=== PATIENT | male | born 1930 | race Caucasian/White ===

== ENCOUNTER 2017-03-12 17:24 | Emergency (ER) | payer MEDICARE ==
[2009-08-12 01:26] VITALS: BP 127/62
[~2017-03-12] VITALS: Ht 172.7 cm; Wt 72.7 kg
[~2017-03-12 17:24] MED LIST: ACIDOPHILUS PO; AMBIEN 5MG TABLE5 MG PO; ASPIR-LOW81 MG PO; ASPIRIN 81M81 MG/TA2 PO; ASPIRIN E.C. 8181 MG PO; B COMPLEX1 TA2 PO; BILBERRY PO; CALCIUM 500500 M2 PO; CALCIUM CARBONATE PO; CALCIUM500 MG PO; COREG 3.123.125 MG/T; COREG 3.123.125 MG/T PO; COREG 6.256.25 MG/TA PO; CORICIDIN; CORICIDIN COUGH1 TAB; FLOMAX 0.40.4 MG/CAP PO; HCTZ; HCTZ12.5TAB PO; LIPITOR 40MG TA40 MG PO; LISINOPRIL; LOPRESSOR 225 MG/TAB PO; MELATONIN3 M1 PO; MILK THISTLE PO; PLAVIX 75MG TAB75 MG PO; PRILOSEC10 MG PO; PRINIVIL40 MG PO; VITAMIN D32000 IU PO; ZANTAC 150MG T150 MG PO; ZOCOR; ZOCOR 40MG40 MG PO
[2017-03-12 17:31] VITALS: TEMP 97.7
[2017-03-12] MEDS ORDERED: ASPIRIN 32325 MG/TAB PO (17:38)
[2017-03-12 17:50] LABS: BASO # 0.1 (0.0-0.2); BASO % 0.4 % (0.0-2.0); EOS # 0.5 (0.0-0.7); EOS % 4.7 % (0-4.0); GRAN # 5.2 (1.4-6.5); GRAN % 44.9 % (42.2-75.2); HEMATOCRIT 47.4 % (42.0-52.0); HEMOGLOBIN 15.6 g/dl (13.5-18.0); LYMPH # 4.7 (1.2-3.4); LYMPH % 40.6 % (20.0-51.0); MEAN CELL VOLUME 90 fl (80.0-100.0); MEAN CORPUSCULAR HEMOGLOBIN 30 pg (27.0-31.0); MEAN CORPUSCULAR HGB CONC 33 g/dl (33.0-37.0); MEAN PLATELET VOLUME 12.2 fl (7.4-10.4); MONO # 1.1 (0.1-0.6); MONO % 9.1 % (1.7-9.3); PLATELET COUNT 185 K/mm3 (130-400); RED BLOOD COUNT 5.26 M/mm3 (4.20-5.60); REDCELL DISTRIBUTION WIDTH-CV 14.9 % (11.5-14.5); WHITE BLOOD COUNT 11.6 K/mm3 (4.8-10.8)
[2017-03-12 18:05] LABS: ALBUMIN 4.3 gm/dL (3.5-5.0); BILIRUBIN,TOTAL 0.8 mg/dL (0.0-1.0); C-REACTIVE PROTEIN 0.6 mg/dL (0.0-0.9); CALCIUM 9.2 mg/dL (8.4-10.2); CREATININE, serum 1.16 mg/dL (0.66-1.25); INR 1.1 (0.8-3.0); POTASSIUM 4.1 mmol/L (3.4-5.0); PROTHROMBIN TIME 12.3 SECONDS (9.7-12.8); TOTAL PROTEIN 7.6 gm/dL (6.4-8.2)
[2017-03-12 18:23] LABS: TROPONIN-I 0.055 ng/mL (0.000-0.034)
[2017-03-12] MEDS ORDERED: FLOMAX 0.40.4 MG/CAP PO (19:16)
[2017-03-12] MEDS ORDERED: MAGNESIUM250 M1 PO (19:20)
[2017-03-12] MEDS ORDERED: LOTENSIN 1010 MG/TAB PO (19:20)
[2017-03-12] MEDS ORDERED: TURMERIC500 MG PO ×2 (19:21→19:22)
[2017-03-12] MEDS ORDERED: GLUCOSAMINE & C1 CA1 PO (19:23)
[2017-03-12 21:13] VITALS: BP 145/88; PULSE 88
== END 2017-03-12 21:13 | disposition short-term general hospital (02) ==
LOC: COL.ER 17:24
PROVIDERS: Family Medicine
DX: I21.4 Non-ST elevation (NSTEMI) myocardial infarction (principal); I25.10 Atherosclerotic heart disease of native coronary artery without angina pectoris; K21.9 Gastro-esophageal reflux disease without esophagitis; I10 Essential (primary) hypertension; E11.9 Type 2 diabetes mellitus without complications; Z87.891 Personal history of nicotine dependence; Z79.82 Long term (current) use of aspirin; Y93.01 Activity, walking, marching and hiking; Y92.59 Other trade areas as the place of occurrence of the external cause
CPT/HCPCS: J7030

== ENCOUNTER → 2017-06-24 | Outpatient (CLI) | payer MEDICARE, BC ==
[~2017-06-24] MED LIST changes: +ASPIRIN 32325 MG/TAB PO; +GLUCOSAMINE & C1 CA1 PO; +LOTENSIN 1010 MG/TAB PO; +MAGNESIUM250 M1 PO; +TURMERIC500 MG PO
== END ==
LOC: SUN.DIA 08-05 18:07
DX: E11.9 Type 2 diabetes mellitus without complications (principal); E78.5 Hyperlipidemia, unspecified; I10 Essential (primary) hypertension; Z68.24 Body mass index [BMI] 24.0-24.9, adult; Z71.3 Dietary counseling and surveillance; Z87.891 Personal history of nicotine dependence
CPT/HCPCS: G0108

== ENCOUNTER 2017-10-23 12:00 | Inpatient (IN) | payer MEDICARE ==
[~2017-10-23] VITALS: Ht 172.7 cm; Wt 75.5 kg
[2017-10-23] MEDS ORDERED: FLOMAX 0.40.4 MG/CAP PO (12:21)
[2017-10-23] MEDS ORDERED: LIPITOR 40MG TA40 MG PO (12:21)
[2017-10-23] MEDS ORDERED: COREG 6.256.25 MG/TA PO (12:22)
[2017-10-23] MEDS ORDERED: ZANTAC 150MG T150 MG PO (12:22)
[2017-10-23] MEDS ORDERED: ASPIRIN E.C. 8181 MG PO (12:22)
[2017-10-23] MEDS ORDERED: LOTENSIN 1010 MG/TAB PO (12:22)
[2017-10-23] MEDS ORDERED: HCTZ12.5TAB PO (12:23)
[2017-10-23] MEDS ORDERED: COUMADIN 22.5 MG/TAB PO (12:24)
[2017-10-23] MEDS ORDERED: GLUCOSAMINE & C1 TAB PO (12:24)
[2017-10-23] MEDS ORDERED: COUMADIN 3MG3 MG/TAB PO (12:24)
[2017-10-23] MEDS ORDERED: VITAMIN C500 MG PO (12:25)
[2017-10-23] MEDS ORDERED: MASON NATURAL2000 IU PO (12:25)
[2017-10-23] MEDS ORDERED: B COMPLEX #11 TA1 PO (12:25)
[2017-10-23] MEDS ORDERED: MILK THISTLE150 MG PO (12:25)
[2017-10-23] MEDS ORDERED: MAGNESIUM250 M1 PO (12:26)
[2017-10-23 12:30] LABS: BASO # 0.1 (0.0-0.2); BASO % 0.6 % (0.0-2.0); EOS # 0.4 (0.0-0.7); EOS % 5.2 % (0-4.0); GRAN # 4.7 (1.4-6.5); GRAN % 58.6 % (42.2-75.2); HEMATOCRIT 38.4 % (42.0-52.0); LYMPH % 25.2 % (20.0-51.0); MEAN CELL VOLUME 92 fl (80.0-100.0); MEAN CORPUSCULAR HEMOGLOBIN 31 pg (27.0-31.0); MEAN CORPUSCULAR HGB CONC 34 g/dl (33.0-37.0); MEAN PLATELET VOLUME 12.2 fl (7.4-10.4); MONO # 0.8 (0.1-0.6); MONO % 9.8 % (1.7-9.3); PLATELET COUNT 152 K/mm3 (130-400); RED BLOOD COUNT 4.17 M/mm3 (4.20-5.60); REDCELL DISTRIBUTION WIDTH-CV 13.1 % (11.5-14.5)
[2017-10-23 12:31] LABS: INR 1.3 (0.8-3.0); PROTHROMBIN TIME 15.6 SECONDS (9.7-12.8)
[2017-10-23 12:35] LABS: ALBUMIN 4.1 gm/dL (3.5-5.0); BILIRUBIN,TOTAL 0.9 mg/dL (0.0-1.0); CALCIUM 9.1 mg/dL (8.4-10.2); CREATININE, serum 1.03 mg/dL (0.66-1.25); POTASSIUM 4.1 mmol/L (3.4-5.0)
[2017-10-23 14:58] VITALS: BP 181/59; PULSE 77
[2017-10-23 17:16] LABS: COLLECTION METHOD CLEAN CATCH
[2017-10-23 17:21] LABS: PH 6 (5-8); SQUAMOUS EPITHELIAL None Seen /hpf; URINE APPEARANCE Clear; URINE BACTERIA None Seen /hpf; URINE BILIRUBIN Negative (NEGATIVE); URINE BLOOD Negative (NEGATIVE); URINE COLOR Yellow; URINE GLUCOSE Negative (NEGATIVE); URINE KETONE 1+ (NEGATIVE); URINE LEUKOCYTE ESTERASE Negative (NEGATIVE); URINE NITRATE Negative (NEGATIVE); URINE PROTEIN(semi-quant) Negative (NEGATIVE); URINE RBC 0-2 /hpf; URINE UROBILINOGEN Negative (NEGATIVE)
[2017-10-23 18:13] VITALS: BP 171/69; PULSE 77; TEMP 98.1
[2017-10-23 21:52] VITALS: BP 154/64; PULSE 73; TEMP 99.2
[2017-10-24] VITALS (13 sets, daily range): BP systolic 113–153; BP diastolic 44–79; PULSE 62–93; TEMP 97.8–98.3
[2017-10-24 06:31] LABS: BASO % 0.3 % (0.0-2.0); EOS # 0.2 (0.0-0.7); EOS % 1.6 % (0-4.0); GRAN # 6.5 (1.4-6.5); GRAN % 70.3 % (42.2-75.2); HEMOGLOBIN 12.1 g/dl (13.5-18.0); LYMPH # 1.7 (1.2-3.4); LYMPH % 17.9 % (20.0-51.0); MEAN CELL VOLUME 91 fl (80.0-100.0); MEAN CORPUSCULAR HEMOGLOBIN 31 pg (27.0-31.0); MEAN CORPUSCULAR HGB CONC 35 g/dl (33.0-37.0); MONO # 0.9 (0.1-0.6); MONO % 9.6 % (1.7-9.3); PLATELET COUNT 133 K/mm3 (130-400); RED BLOOD COUNT 3.88 M/mm3 (4.20-5.60)
[2017-10-24 06:32] LABS: HEMATOCRIT 35.1 % (42.0-52.0)
[2017-10-24 06:45] LABS: CALCIUM 8.5 mg/dL (8.4-10.2); CREATININE, serum 0.9 mg/dL (0.66-1.25); POTASSIUM 3.7 mmol/L (3.4-5.0)
[2017-10-24 06:48] LABS: INR 1.5 (0.8-3.0); PROTHROMBIN TIME 17.8 SECONDS (9.7-12.8)
[2017-10-25 02:26] VITALS: BP 116/77; PULSE 77; TEMP 98.1
[2017-10-25 05:43] VITALS: BP 137/54; PULSE 67; TEMP 98.5
[2017-10-25 06:49] LABS: BASO % 0.1 % (0.0-2.0); EOS % 0.1 % (0-4.0); GRAN # 11.4 (1.4-6.5); GRAN % 80.7 % (42.2-75.2); LYMPH # 1.5 (1.2-3.4); LYMPH % 10.5 % (20.0-51.0); MEAN CELL VOLUME 90 fl (80.0-100.0); MEAN CORPUSCULAR HGB CONC 35 g/dl (33.0-37.0); MEAN PLATELET VOLUME 12.8 fl (7.4-10.4); MONO # 1.1 (0.1-0.6); PLATELET COUNT 109 K/mm3 (130-400); RED BLOOD COUNT 3.36 M/mm3 (4.20-5.60); REDCELL DISTRIBUTION WIDTH-CV 12.7 % (11.5-14.5)
[2017-10-25 06:53] LABS: HEMATOCRIT 30.3 % (42.0-52.0); HEMOGLOBIN 10.6 g/dl (13.5-18.0); MEAN CORPUSCULAR HEMOGLOBIN 32 pg (27.0-31.0)
[2017-10-25 07:02] LABS: CALCIUM 7.8 mg/dL (8.4-10.2); CREATININE, serum 1.07 mg/dL (0.66-1.25); MAGNESIUM 1.8 mg/dL (1.6-2.3); PHOSPHOROUS 3.4 mg/dL (2.5-4.5); POTASSIUM 3.9 mmol/L (3.4-5.0)
[2017-10-25 09:44] VITALS: BP 112/48; PULSE 95; TEMP 96.8
[2017-10-25 13:44] VITALS: BP 133/42; PULSE 82; TEMP 98.9
[2017-10-25 17:02] VITALS: BP 122/44; PULSE 75; TEMP 97.3
[2017-10-25 21:57] VITALS: BP 148/51; PULSE 84; TEMP 98.1
[2017-10-26 01:33] VITALS: BP 123/43; PULSE 89; TEMP 98.1
[2017-10-26 06:58] LABS: BASO % 0.4 % (0.0-2.0); EOS # 0.6 (0.0-0.7); EOS % 5.1 % (0-4.0); GRAN % 65.2 % (42.2-75.2); LYMPH # 2.1 (1.2-3.4); LYMPH % 19.3 % (20.0-51.0); MEAN CELL VOLUME 91 fl (80.0-100.0); MEAN CORPUSCULAR HGB CONC 34 g/dl (33.0-37.0); MEAN PLATELET VOLUME 12.6 fl (7.4-10.4); MONO % 9.5 % (1.7-9.3); PLATELET COUNT 108 K/mm3 (130-400); RED BLOOD COUNT 3.36 M/mm3 (4.20-5.60); REDCELL DISTRIBUTION WIDTH-CV 13.1 % (11.5-14.5)
[2017-10-26 07:05] LABS: INR 1.7 (0.8-3.0); PROTHROMBIN TIME 20.3 SECONDS (9.7-12.8)
[2017-10-26 07:12] LABS: CREATININE, serum 1.15 mg/dL (0.66-1.25); MAGNESIUM 1.8 mg/dL (1.6-2.3); POTASSIUM 4.2 mmol/L (3.4-5.0)
[2017-10-26 07:15] LABS: HEMATOCRIT 30.7 % (42.0-52.0); HEMOGLOBIN 10.4 g/dl (13.5-18.0); MEAN CORPUSCULAR HEMOGLOBIN 31 pg (27.0-31.0)
[2017-10-26 10:36] VITALS: BP 93/38; PULSE 12; TEMP 98
[2017-10-26 15:13] VITALS: BP 95/39; PULSE 87; TEMP 97.6
[2017-10-26 18:21] VITALS: BP 134/53; PULSE 84; TEMP 98.9
[2017-10-26 22:15] VITALS: BP 131/45; PULSE 67; TEMP 99
[2017-10-27 02:07] VITALS: BP 111/40; PULSE 107; TEMP 97.2
[2017-10-27 04:49] VITALS: BP 146/68; PULSE 117; TEMP 97.8
[2017-10-27 07:56] LABS: BASO % 0.3 % (0.0-2.0); EOS # 0.6 (0.0-0.7); EOS % 6.2 % (0-4.0); GRAN # 6.4 (1.4-6.5); GRAN % 65.7 % (42.2-75.2); LYMPH # 1.7 (1.2-3.4); LYMPH % 17.4 % (20.0-51.0); MEAN CELL VOLUME 93 fl (80.0-100.0); MEAN CORPUSCULAR HGB CONC 34 g/dl (33.0-37.0); MEAN PLATELET VOLUME 12.8 fl (7.4-10.4); MONO % 9.9 % (1.7-9.3); PLATELET COUNT 120 K/mm3 (130-400); RED BLOOD COUNT 3.14 M/mm3 (4.20-5.60); REDCELL DISTRIBUTION WIDTH-CV 13.5 % (11.5-14.5)
[2017-10-27 08:06] LABS: HEMATOCRIT 29.1 % (42.0-52.0); HEMOGLOBIN 9.8 g/dl (13.5-18.0); MEAN CORPUSCULAR HEMOGLOBIN 31 pg (27.0-31.0)
[2017-10-27 08:09] LABS: CALCIUM 8.1 mg/dL (8.4-10.2); CREATININE, serum 1.01 mg/dL (0.66-1.25); POTASSIUM 4.4 mmol/L (3.4-5.0)
[2017-10-27 08:35] LABS: INR 1.9 (0.8-3.0); PROTHROMBIN TIME 22.3 SECONDS (9.7-12.8)
[2017-10-27] MEDS ORDERED: NORCO 325 MG-7.1 TAB PO (09:30)
[2017-10-27] MEDS ORDERED: TYLENOL 325MG325 MG PO (09:30)
[2017-10-27] MEDS ORDERED: AMBIEN 10MG10 MG PO (09:31)
[2017-10-27] MEDS ORDERED: GOOD NEIGH1200 MG/15 PO (09:32)
[2017-10-27 10:24] VITALS: BP 146/68; PULSE 117; TEMP 97.8
== END 2017-10-27 11:25 | DRG 481 ==
LOC: COL.ER 12:00 → SURG 12:54
PROVIDERS: Emergency Medicine; Internal Medicine; Orthopaedic Surgery; Physician Assistant
PROC: 0QSC06Z Reposition Left Lower Femur with Intramedullary Internal Fixation Device, Open Approach (ICD-10-PCS; principal; 2017-10-24 10:00)
DX: S72.142A Displaced intertrochanteric fracture of left femur, initial encounter for closed fracture (principal); E87.1 Hypo-osmolality and hyponatremia; I10 Essential (primary) hypertension; K21.9 Gastro-esophageal reflux disease without esophagitis; E78.5 Hyperlipidemia, unspecified; E11.9 Type 2 diabetes mellitus without complications; N40.0 Benign prostatic hyperplasia without lower urinary tract symptoms; Z79.01 Long term (current) use of anticoagulants; Z95.1 Presence of aortocoronary bypass graft; Z86.711 Personal history of pulmonary embolism; Z95.2 Presence of prosthetic heart valve; W18.39XA Other fall on same level, initial encounter; Y92.511 Restaurant or cafe as the place of occurrence of the external cause
CPT/HCPCS: 99222-AI; 99231-AI; 99233-AI; 99239; A9284; C1713; J0690; J1100; J1815; J1885; J2270; J2405; J2704; J3010; J7030

== ENCOUNTER → 2017-11-02 | Outpatient (REF) ==
[~2017-11-02] MED LIST changes: +AMBIEN 10MG10 MG PO; +B COMPLEX #11 TA1 PO; +COUMADIN 22.5 MG/TAB PO; +COUMADIN 3MG3 MG/TAB PO; +GLUCOSAMINE & C1 TAB PO; +GOOD NEIGH1200 MG/15 PO; +MASON NATURAL2000 IU PO; +MILK THISTLE150 MG PO; +NORCO 325 MG-7.1 TAB PO; +TYLENOL 325MG325 MG PO; +VITAMIN C500 MG PO
[2017-11-02 17:39] LABS: COLLECTION METHOD CLEAN CATCH
[2017-11-02 17:47] LABS: PH 5 (5-8); SQUAMOUS EPITHELIAL None Seen /hpf; URINE APPEARANCE Clear; URINE BACTERIA None Seen /hpf; URINE BILIRUBIN Negative (NEGATIVE); URINE BLOOD Negative (NEGATIVE); URINE COLOR Amber; URINE GLUCOSE Negative (NEGATIVE); URINE KETONE Negative (NEGATIVE); URINE LEUKOCYTE ESTERASE Negative (NEGATIVE); URINE NITRATE Negative (NEGATIVE); URINE PROTEIN(semi-quant) Negative (NEGATIVE); URINE RBC 0-2 /hpf; URINE UROBILINOGEN >=4.0 mg/dL (NEGATIVE)
== END ==
LOC: ZCOL.LAB 17:38
PROVIDERS: Internal Medicine
DX: Z01.89 Encounter for other specified special examinations (principal)

== ENCOUNTER → 2017-11-12 | Outpatient (REF) ==
[2017-11-12 11:33] LABS: COLLECTION METHOD CLEAN CATCH
[2017-11-12 11:39] LABS: MUCOUS Present /lpf; PH 6 (5-8); SQUAMOUS EPITHELIAL 0-2 /hpf; URINE APPEARANCE Hazy; URINE BACTERIA None Seen /hpf; URINE BILIRUBIN Negative (NEGATIVE); URINE BLOOD Negative (NEGATIVE); URINE COLOR Yellow; URINE GLUCOSE 1+ (NEGATIVE); URINE KETONE Negative (NEGATIVE); URINE LEUKOCYTE ESTERASE Negative (NEGATIVE); URINE NITRATE Negative (NEGATIVE); URINE PROTEIN(semi-quant) Negative (NEGATIVE); URINE RBC 0-2 /hpf
== END ==
LOC: ZCOL.LAB 11:27
PROVIDERS: Family Medicine
DX: Z01.89 Encounter for other specified special examinations (principal)

== ENCOUNTER → 2018-01-05 | Outpatient (CLI) | payer MEDICARE | LOC: SUN.DIA 12-23 10:45 | DX: E11.9 Type 2 diabetes mellitus without complications (principal); E78.5 Hyperlipidemia, unspecified; I10 Essential (primary) hypertension; Z71.3 Dietary counseling and surveillance; Z87.891 Personal history of nicotine dependence ==

== ENCOUNTER 2018-04-22 17:56 | Emergency (ER) | payer MEDICARE ==
[2009-08-12 01:26] VITALS: BP 127/62
[~2018-04-22] VITALS: Ht 172.7 cm; Wt 76.4 kg
[2018-04-22 18:01] VITALS: BP 157/66; TEMP 97.7
[2018-04-22 18:25] LABS: BASO % 0.6 % (0.0-2.0); EOS # 0.6 (0.0-0.7); EOS % 8.3 % (0-4.0); GRAN # 3.8 (1.4-6.5); GRAN % 54.1 % (42.2-75.2); LYMPH # 1.9 (1.2-3.4); LYMPH % 26.6 % (20.0-51.0); MEAN CELL VOLUME 88 fl (80.0-100.0); MEAN CORPUSCULAR HEMOGLOBIN 30 pg (27.0-31.0); MEAN CORPUSCULAR HGB CONC 34 g/dl (33.0-37.0); MEAN PLATELET VOLUME 12.1 fl (7.4-10.4); MONO # 0.7 (0.1-0.6); MONO % 10.3 % (1.7-9.3); PLATELET COUNT 142 K/mm3 (130-400); REDCELL DISTRIBUTION WIDTH-CV 15.3 % (11.5-14.5)
[2018-04-22 18:26] LABS: HEMATOCRIT 35.3 % (42.0-52.0)
[2018-04-22 18:35] LABS: ALBUMIN 3.7 gm/dL (3.5-5.0); BILIRUBIN,TOTAL 0.4 mg/dL (0.0-1.0); CALCIUM 8.8 mg/dL (8.4-10.2); CREATININE, serum 1.01 mg/dL (0.66-1.25); POTASSIUM 3.7 mmol/L (3.4-5.0); TOTAL PROTEIN 6.7 gm/dL (6.4-8.2)
[2018-04-22 18:44] LABS: PROTHROMBIN TIME 68.5 SECONDS (9.7-12.8)
[2018-04-22] MEDS ORDERED: MELATONIN5 M1 SL (20:13)
[2018-04-22 20:18] VITALS: PULSE 68
== END 2018-04-22 20:20 | disposition home or self-care (01) ==
LOC: COL.ER 17:56
PROVIDERS: Emergency Medicine
DX: S09.90XA Unspecified injury of head, initial encounter (principal); S00.81XA Abrasion of other part of head, initial encounter; M25.552 Pain in left hip; E87.1 Hypo-osmolality and hyponatremia; R79.1 Abnormal coagulation profile; I25.10 Atherosclerotic heart disease of native coronary artery without angina pectoris; Z79.01 Long term (current) use of anticoagulants; Z95.1 Presence of aortocoronary bypass graft; Z79.82 Long term (current) use of aspirin; W19.XXXA Unspecified fall, initial encounter